=== PATIENT | male | born 1975 | race Caucasian/White ===

== ENCOUNTER 2016-11-25 08:16 | Emergency (ER) | payer SELFPAY ==
[~2016-11-25] VITALS: Ht 180.3 cm; Wt 72.6 kg
[~2016-11-25 08:16] MED LIST: AMOXICILLIN875 MG PO; AUGMENTIN 875 M1 TAB PO; BACTRIM DS 8001 TA1 PO; BLEPH-10 15 ML15 ML OP; CLARITIN10 MG PO; CORTISPORIN SUS10 ML OT; DIFLUCAN150 MG PO; MEDROL DOSEPAK4 MG PO; MOTRIN800 MG PO; NAPROSYN500 MG PO; NKHM; PENICILLIN VK500 MG PO; Peridex 473 ML473 ML PO; TOBREX OPHTH O3.5 GM OPH
[2016-11-25 08:35] LABS: BILIRUBIN NEGATIVE (NEGATIVE); BLOOD 1+ (NEGATIVE); CLARITY SL CLOUDY (CLEAR); COLOR YELLOW (YELLOW); GLUCOSE NEGATIVE (NEGATIVE); KETONE NEGATIVE (NEGATIVE); LEUKO ESTERASE NEGATIVE (NEGATIVE); NITRITE NEGATIVE (NEGATIVE); PROTEIN NEGATIVE (NEGATIVE); SPECIFIC GRAVITY 1.025 (1.005-1.030); UROBILINOGEN 0.2 E.U./dl (0.2-1.0)
[2016-11-25 08:47] LABS: BACTERIA 1+; MUCOUS 1+
[2016-11-25 08:48] LABS: URINE REFLEX COMMENT YES (NO)
[2016-11-28 00:07] LABS: GONOCOCCUS BY NAA Negative (Negative); TRICHOMONAS VAGINALIS BY NAA Negative (Negative)
== END 2016-11-25 08:50 | disposition home or self-care (01) ==
LOC: ED 08:16
PROVIDERS: Student in an Organized Health Care Education/Training Program
DX: Z20.2 Contact with and (suspected) exposure to infections with a predominantly sexual mode of transmission (principal); F17.200 Nicotine dependence, unspecified, uncomplicated

== ENCOUNTER 2017-03-06 15:44 | Emergency (ER) | payer OTHER ==
[~2017-03-06] VITALS: Wt 70.3 kg
[2017-03-06] MEDS ORDERED: ANAPROX DS550 MG PO (16:57)
[2017-03-06] MEDS ORDERED: ROBAXIN500 M1 PO (16:57)
== END 2017-03-06 17:01 | disposition home or self-care (01) ==
LOC: ED 15:44
DX: M54.5 Low back pain (principal); F17.200 Nicotine dependence, unspecified, uncomplicated

== ENCOUNTER 2017-07-17 13:55 | Emergency (ER) | payer OTHER ==
[~2017-07-17] VITALS: Ht 180.3 cm; Wt 70.3 kg
[~2017-07-17 13:55] MED LIST changes: +ANAPROX DS550 MG PO; +ROBAXIN500 M1 PO
[2017-07-17] MEDS ORDERED: CLINDAMYCIN HC300 MG PO (14:11)
[2017-07-17] MEDS ORDERED: Motrin,Rufen800 MG PO (14:11)
== END 2017-07-17 14:33 | disposition home or self-care (01) ==
LOC: ED 13:55
DX: K04.7 Periapical abscess without sinus (principal); F17.200 Nicotine dependence, unspecified, uncomplicated; Z98.890 Other specified postprocedural states

== ENCOUNTER 2017-08-29 16:26 | Emergency (ER) | payer OTHER ==
[~2017-08-29] VITALS: Wt 72.6 kg
[~2017-08-29 16:26] MED LIST changes: +CLINDAMYCIN HC300 MG PO; +Motrin,Rufen800 MG PO
[2017-08-29] MEDS ORDERED: NAPROSYN500 MG PO (16:42)
== END 2017-08-29 18:16 | disposition home or self-care (01) ==
LOC: ED 16:26
DX: M94.0 Chondrocostal junction syndrome [Tietze] (principal); F17.200 Nicotine dependence, unspecified, uncomplicated

== ENCOUNTER 2017-10-05 19:57 | Emergency (ER) | payer OTHER ==
[~2017-10-05] VITALS: Ht 180.3 cm; Wt 72.6 kg
[2017-10-05 21:02] LABS: BASO # 0.1 10*3/uL (0.0-0.1); BASO % 0.5 % (0.0-1.0); EOS # 0.3 10*3/uL (0.0-0.4); EOS % 2.5 % (1.0-4.0); HEMATOCRIT 40.3 % (42.0-52.0); HEMOGLOBIN 13.9 g/dl (14.0-18.0); LYMPH % 25.3 % (27.0-41.0); MEAN CELL VOLUME 100.2 fl (80.0-94.0); MEAN CORPUSCULAR HGB 34.6 pg (27.0-31.0); MEAN CORPUSCULAR HGB CONC 34.5 g/dl (33.0-37.0); MEAN PLATELET VOLUME 9.7 fl (9.6-12.3); MONO # 0.8 10*3/uL (0.1-1.0); MONO % 7.1 % (3.0-9.0); NEUT # 7.5 10*3/uL (2.3-7.9); PLATELET COUNT AUTOMATED 230 10*3/uL (130-400); RED BLOOD COUNT 4.02 10*6/uL (4.50-5.90); RED CELL DISTRI WIDTH 13.5 % (0-14.5); WHITE BLOOD COUNT 11.7 10*3/uL (4.8-10.8)
[2017-10-05 21:16] LABS: ALBUMIN 3.8 gm/dl (3.1-4.5); ALKALINE PHOSPHATASE 42 U/L (45-117); BUN 11 mg/dl (7-24); CHLORIDE 103 mmol/L (98-107); CREATININE 1.03 mg/dL (0.70-1.30); LIPASE 157 U/L (73-393); POTASSIUM 3.8 mmol/L (3.5-5.1); SGOT/AST 15 IU/L (3-35); SGPT/ALT 29 U/L (12-78); SODIUM 138 mmol/L (136-145); TOTAL PROTEIN 7.5 gm/dL (6.4-8.2)
[2017-10-05 21:48] LABS: BILIRUBIN NEGATIVE (NEGATIVE); BLOOD NEGATIVE (NEGATIVE); CLARITY SL CLOUDY (CLEAR); COLOR YELLOW (YELLOW); GLUCOSE NEGATIVE (NEGATIVE); KETONE NEGATIVE (NEGATIVE); LEUKO ESTERASE NEGATIVE (NEGATIVE); NITRITE NEGATIVE (NEGATIVE); SPECIFIC GRAVITY <= 1.005 (1.005-1.030); UROBILINOGEN 0.2 E.U./dl (0.2-1.0)
[2017-10-05] MEDS ORDERED: CYCLOBENZAPRINE5 M3 PO (21:55)
[2017-10-05] MEDS ORDERED: KETOROLAC10 MG PO (21:55)
[2017-10-05 22:00] LABS: BACTERIA TRACE
[2017-10-05 22:01] LABS: RBC 0-2 rbc/hpf (0-2); WBC 0-2 wbc/hpf (0-5)
== END 2017-10-05 22:01 | disposition home or self-care (01) ==
LOC: ED 19:57
PROVIDERS: Emergency Medicine Emergency Medical Services
DX: S16.1XXA Strain of muscle, fascia and tendon at neck level, initial encounter (principal); M54.9 Dorsalgia, unspecified; W13.0XXA Fall from, out of or through balcony, initial encounter; Y93.89 Activity, other specified; Y92.89 Other specified places as the place of occurrence of the external cause; Y99.8 Other external cause status

== ENCOUNTER 2018-05-18 14:39 | Emergency (ER) | payer OTHER ==
[~2018-05-18] VITALS: Wt 68.0 kg
[~2018-05-18 14:39] MED LIST changes: +CYCLOBENZAPRINE5 M3 PO; +KETOROLAC10 MG PO
[2018-05-18] MEDS ORDERED: Motrin,Rufen800 MG PO (14:53)
[2018-05-18] MEDS ORDERED: CEFADROXIL500 M1 PO (14:53)
== END 2018-05-18 15:10 | disposition home or self-care (01) ==
LOC: ED 14:39
DX: S51.832A Puncture wound without foreign body of left forearm, initial encounter (principal); R55 Syncope and collapse; F17.200 Nicotine dependence, unspecified, uncomplicated; Z98.890 Other specified postprocedural states; W20.8XXA Other cause of strike by thrown, projected or falling object, initial encounter; Y93.89 Activity, other specified; Y92.099 Unspecified place in other non-institutional residence as the place of occurrence of the external cause; Y99.9 Unspecified external cause status

== ENCOUNTER 2020-11-23 21:53 | Emergency (ER) | payer SELFPAY ==
[~2020-11-23] VITALS: Ht 180.3 cm; Wt 72.6 kg
[~2020-11-23 21:53] MED LIST changes: +CEFADROXIL500 M1 PO; +CYCLOBENZAPRINE10 MG PO; +IBU800 MG PO; +TYLENOL325 M1 PO
[2020-11-23 22:59] LABS: BASO # 0.1 10*3/uL (0.0-0.1); EOS # 0.2 10*3/uL (0.0-0.4); HEMATOCRIT 38.1 % (42.0-52.0); LYMPH # 2.1 10*3/uL (1.3-4.4); LYMPH % 22.8 % (27.0-41.0); MEAN CELL VOLUME 99.5 fl (80.0-94.0); MEAN CORPUSCULAR HGB 33.9 pg (27.0-31.0); MEAN CORPUSCULAR HGB CONC 34.1 g/dl (33.0-37.0); MEAN PLATELET VOLUME 9.4 fl (9.6-12.3); MONO # 0.7 10*3/uL (0.1-1.0); NEUT # 5.9 10*3/uL (2.3-7.9); NEUT % 65.8 % (47.0-73.0); PLATELET COUNT AUTOMATED 231 10*3/uL (130-400); RED BLOOD COUNT 3.83 10*6/uL (4.50-5.90); RED CELL DISTRI WIDTH 13.6 % (0-14.5)
[2020-11-23 23:31] LABS: ALBUMIN 3.7 gm/dl (3.1-4.5); ALKALINE PHOSPHATASE 46 U/L (45-117); BUN 5 mg/dl (7-24); CHLORIDE 105 mmol/L (98-107); CREATININE 1.15 mg/dL (0.70-1.30); POTASSIUM 4.1 mmol/L (3.5-5.1); SGOT/AST 21 IU/L (3-35); SGPT/ALT 34 U/L (12-78); SODIUM 138 mmol/L (136-145); TOTAL PROTEIN 6.9 gm/dL (6.4-8.2)
[2020-11-23 23:37] LABS: THYROID STIM HORMONE (HS) 0.809 uIU/ml (0.358-4.75)
[2020-11-23 23:45] LABS: TROPONIN I < 0.015 ng/ml (<0.045)
[2020-11-24] MEDS ORDERED: HYDROCODONE-AC1 EAC1 PO (03:45)
== END 2020-11-24 02:06 | disposition left against medical advice (07) ==
LOC: ED 21:53
PROVIDERS: Emergency Medicine
DX: S22.32XA Fracture of one rib, left side, initial encounter for closed fracture (principal); S27.0XXA Traumatic pneumothorax, initial encounter; F17.200 Nicotine dependence, unspecified, uncomplicated; W18.30XA Fall on same level, unspecified, initial encounter; Y93.89 Activity, other specified; Y92.89 Other specified places as the place of occurrence of the external cause; Y99.9 Unspecified external cause status

== ENCOUNTER 2020-11-24 01:14 | Emergency (ER) | payer SELFPAY ==
[~2020-11-24] VITALS: Ht 177.8 cm; Wt 72.6 kg
[2020-11-24] MEDS ORDERED: HYDROCODONE-AC1 EAC1 PO (03:45)
== END 2020-11-24 03:58 | disposition home or self-care (01) ==
LOC: ED 01:14
DX: S22.32XA Fracture of one rib, left side, initial encounter for closed fracture (principal); S27.0XXA Traumatic pneumothorax, initial encounter; Z98.890 Other specified postprocedural states; W18.30XA Fall on same level, unspecified, initial encounter; Y93.89 Activity, other specified; Y92.89 Other specified places as the place of occurrence of the external cause; Y99.9 Unspecified external cause status

== ENCOUNTER 2021-05-10 11:13 | Emergency (ER) | payer MEDICAID ==
[~2021-05-10] VITALS: Wt 72.6 kg
[~2021-05-10 11:13] MED LIST changes: +HYDROCODONE-AC1 EAC1 PO
[2021-05-10] MEDS ORDERED: Tobrex Ophth S2.5 ML OPH (11:42)
[2021-05-10] MEDS ORDERED: IBUPROFEN600 MG PO (11:42)
== END 2021-05-10 11:51 | disposition home or self-care (01) ==
LOC: ED 11:13
DX: H10.9 Unspecified conjunctivitis (principal)

== ENCOUNTER 2023-06-15 23:07 | Emergency (ER) | payer OTHER ==
[~2023-06-15] VITALS: Ht 180.3 cm; Wt 70.3 kg
[~2023-06-15 23:07] MED LIST changes: +IBUPROFEN600 MG PO; +Tobrex Ophth S2.5 ML OPH
[2023-06-15 23:50] LABS: BASO # 0.1 10*3/uL (0.0-0.1); BASO % 0.9 % (0.0-1.0); EOS # 0.2 10*3/uL (0.0-0.4); EOS % 1.5 % (1.0-4.0); HEMATOCRIT 40.2 % (42.0-52.0); LYMPH % 26.4 % (27.0-41.0); MEAN CORPUSCULAR HGB 36.3 pg (27.0-31.0); MEAN CORPUSCULAR HGB CONC 34.6 g/dl (33.0-37.0); MONO # 1.3 10*3/uL (0.1-1.0); MONO % 11.5 % (3.0-9.0); NEUT # 6.7 10*3/uL (2.3-7.9); NEUT % 59.3 % (47.0-73.0); PLATELET COUNT AUTOMATED 267 10*3/uL (130-400); RED BLOOD COUNT 3.83 10*6/uL (4.50-5.90); RED CELL DISTRI WIDTH 14.1 % (0-14.5); WHITE BLOOD COUNT 11.3 10*3/uL (4.8-10.8)
[2023-06-16 00:18] LABS: ALKALINE PHOSPHATASE 63 U/L (46-116); BUN 7 mg/dl (9-23); CHLORIDE 98 mmol/L (98-107); ETHYL ALCOHOL 92.5 mg/dl (<3); POTASSIUM 3.9 mmol/L (3.4-5.1); SGPT/ALT 31 U/L (10-49); TOTAL PROTEIN 7.3 gm/dL (6.0-8.0)
== END 2023-06-16 02:06 | disposition home or self-care (01) ==
LOC: ED 23:07
PROVIDERS: Internal Medicine
DX: I95.1 Orthostatic hypotension (principal); F10.90 Alcohol use, unspecified, uncomplicated; E87.1 Hypo-osmolality and hyponatremia; R51.9 Headache, unspecified; Z98.890 Other specified postprocedural states; Y90.4 Blood alcohol level of 80-99 mg/100 ml

== ENCOUNTER 2025-08-16 23:22 | Emergency (ER) | payer OTHER ==
[~2025-08-16] VITALS: Ht 154.9 cm; Wt 72.6 kg
[2025-08-16] MEDS ORDERED: Tdap Vaccine 0.5 ML SYR (Adult Vaccine) IM ONE (23:50)
[2025-08-17] MEDS ORDERED: DERMABOND 1 EA APPL T ONE (00:24)
== END 2025-08-17 00:13 | disposition home or self-care (01) ==
LOC: ED 23:22
DX: S61.032A Puncture wound without foreign body of left thumb without damage to nail, initial encounter (principal); W26.0XXA Contact with knife, initial encounter; Y93.89 Activity, other specified; Y92.89 Other specified places as the place of occurrence of the external cause; Y99.8 Other external cause status